=== PATIENT | male | born 1970 | race Caucasian/White ===

== ENCOUNTER 2022-04-03 09:15 | Outpatient (CLI) | payer OTHER, SELFPAY | END 2022-04-03 09:16 | disposition home or self-care (01) | LOC: AMB 04-29 22:02 | PROVIDERS: PCP Family Medicine; Visit Provider Family Medicine | DX: M54.9 Dorsalgia, unspecified (principal) | CPT/HCPCS: A0425; A0433 ==

== ENCOUNTER 2022-04-03 10:04 | Emergency (ER) | payer OTHER, SELFPAY ==
[2022-04-03] VITALS (7 sets, daily range): BP systolic 117–135; BP diastolic 73–79; PULSE 61–65; RESP 18; TEMP 36.6; O2SAT 94–98; BMI 31.6
--- NOTE | 2022-04-03 11:33 | CRLHL7_ITS ---
For Patients: As a result of the Cures Act, medical imaging exams and procedure reports are released immediately into your electronic medical record. You may view this report before your referring provider. If you have questions, please contact your health care provider. INDICATION: fall; twisted low back TECHNIQUE: 2-view lumbar spine. COMPARISON: none FINDINGS: The lumbar vertebrae are anatomically aligned. Minimal spurring L4-5. The facet joints appear intact. There is no evidence of a fracture or intrinsic bone lesion. The SI joints appear normal. The paraspinal soft tissues appear normal. IMPRESSION: No sign of acute injury. Dictated by Eliot Cervantes MD @ 04/03/2022 12:16:44 PM (Electronically Signed)
--- NOTE | 2022-04-03 11:35 | ED.BACK ---
HPI - Back Pain/Injury General Chief Complaint: Back Injury/Pain Stated Complaint: Backpain Time Seen by Provider: 04/03/22 11:24 History of Present Illness HPI Narrative: This 51-year-old male comes in by ambulance because of severe low back pain. He states that he was stepping out of a truck yesterday onto an incline that was slippery. He twisted and fell and had severe pain on his low back on both the left and right side of his midline. He was able to get up eventually and with difficulty to ambulate. He comes in by ambulance today because he was unable to get up this morning due to severe pain. He does report pain down the anterior aspect of his left upper leg. He does have a prior history of low back pain. He does not report any other injury and did not have loss of consciousness. He states that he took an oxycodone twice through the night but this did not help much. Ambulance arrived because he was not able to get up because of severe pain. An IV was established and he received fentanyl 100 mcg and Ativan 2 mg intravenously prior to arrival here. At the time of my visit with him he was repeatedly falling asleep under the influence of these medications. Related Data Home Medications Medication Instructions Recorded Confirmed albuterol sulfate 90 mcg/actuation 2 puff inhalation Q4H PRN 04/03/22 04/03/22 aerosol inhaler bupropion HCl 150 mg 24 hr tablet, 150 mg PO DAILY 04/03/22 04/03/22 extended release Previous Rx's Medication Instructions Recorded cyclobenzaprine 10 mg tablet 10 mg PO TID #15 tabs 04/03/22 hydrocodone 5 mg-acetaminophen 325 1 tab PO Q4-6H PRN pain #15 tabs 04/03/22 mg tablet ketorolac 10 mg tablet 10 mg PO Q8H 5 days #15 tabs 04/03/22 methylprednisolone 4 mg tablets in See Rx Instructions PO .COMPLEX 04/03/22 a dose pack (Medrol (Quirino)) #21 ea Allergies Allergy/AdvReac Type Severity Reaction Status Date / Time No Known Drug Allergies Allergy Verified 04/03/22 10:24 Review of Systems Status of ROS: Reports: 10 or more systems reviewed and unremarkable except as noted in History and below Narrative: Constitutional: No fevers, no weight gain or loss. Eyes: No discharge. No vision changes. HENT: No congestion, no sore throat, no ear pain. Cardiovascular: No chest pain, no palpitations. Respiratory: No shortness of breath, no wheezes, no cough. Gastrointestinal: No abdominal pain, no vomiting, no diarrhea. Genitourinary: No dysuria, no hematuria. Musculoskeletal: Low back pain as described above. Skin: No rashes, no pruritis. Neurological: No dizziness, weakness, sensory change, speech change. Endo/Heme/Allergies: No bruising or bleeding. No polydipsia. Pysch: no suicidality, no anxiety, no insomnia. All other systems reviewed and are negative. PFSH [facility] Social History Smoking Status: Current every day smoker What tobacco products do you use: cigarettes Do you use any of these nicotine containing products: Vaping Products Second hand tobacco smoke exposure: No How often do you have a drink containing alcohol: monthly or less How many standard drinks containing alcohol do you have on a typical day: 1 or 2 AUDIT-C Alcohol total score: 1 Non-prescribed substance use: denies use Exam Narrative: Exam Narrative: Constitutional: Well-developed, well-nourished, no acute distress. HEENT: Normocephalic, atraumatic. Neck: Normal range of motion. Nontender. Supple. Heart: Regular. No murmurs. Normal rate. Intact distal pulses. Lungs: Clear to auscultation. No chest discomfort. No wheezes, rhonchi, or rales. Abdomen: Normal bowel sounds. Nontender. No rebound tenderness. Genitalia: Deferred. Back: Bilateral low back pain with pain radiating down the anterior aspect of the left upper leg. Straight leg raise is positive bilaterally at about 20? elevation. Extremities: Normal range of motion. No injury. Skin: Intact. No rash. Warm. No erythema or pallor. Neurologic: No altered sensation. No weakness. Alert and oriented. Psychiatric: No suicidality. No anxiety or depression. No insomnia. Nursing notes and vitals signs are reviewed. Const: Vital Signs, click to edit/add: Vital Signs - 24 hr 04/03/22 10:17 04/03/22 10:32 04/03/22 10:33 Temperature 97.8 F Pulse Rate 64 65 Pulse Rate [Left P ulse Oximeter] 64 Respiratory Rate 18 Blood Pressure 135/77 Blood Pressure [Ri ght Upper Arm] 130/73 Pulse Oximetry 94 94 94 Oxygen Delivery Me thod Room Air 04/03/22 10:45 04/03/22 11:00 04/03/22 11:01 Temperature Pulse Rate 61 61 64 Pulse Rate [Left P ulse Oximeter] Respiratory Rate Blood Pressure 117/79 Blood Pressure [Ri ght Upper Arm] Pulse Oximetry 95 94 98 Oxygen Delivery Me thod 04/03/22 11:15 Temperature Pulse Rate 62 Pulse Rate [Left P ulse Oximeter] Respiratory Rate Blood Pressure Blood Pressure [Ri ght Upper Arm] Pulse Oximetry 95 Oxygen Delivery Me thod Course Vital Signs Vital signs: Initial Vital Signs Temperature 97.8 F 04/03/22 10:17 Temperature Source Temporal Artery Scan 04/03/22 10:17 Pulse Rate 64 04/03/22 10:17 Pulse Rhythm 04/03/22 10:17 Respiratory Rate 18 04/03/22 10:17 Blood Pressure 130/73 04/03/22 10:17 Blood Pressure Mean 92 04/03/22 10:17 Blood Pressure Position Supine 04/03/22 10:17 Pulse Oximetry 94 04/03/22 10:17 Oxygen Delivery Method 04/03/22 10:17 Vital Signs Temperature 97.8 F 04/03/22 10:17 Pulse Rate 64 04/03/22 10:17 Respiratory Rate 18 04/03/22 10:17 Blood Pressure 130/73 04/03/22 10:17 Pulse Oximetry 94 04/03/22 10:17 Oxygen Delivery Method 04/03/22 10:17 Temperature 97.8 F 04/03/22 10:17 Pulse Rate 62 04/03/22 11:15 Respiratory Rate 18 04/03/22 10:17 Blood Pressure 117/79 04/03/22 11:01 Pulse Oximetry 95 04/03/22 11:15 Oxygen Delivery Method 04/03/22 10:17 MDM - Back Pain/Injury MDM Narrative Medical decision making narrative: This patient comes in by ambulance because of severe low back pain after a fall that occurred yesterday. He is rather drowsy after receiving 100 mcg of fentanyl and 2 mg of Ativan intravenously prior to arrival here. He does not appear to be in much distress and actually is often falling asleep during conversation. His vital signs are in normal range. X-ray imaging of his low back shows no acute findings. The patient was able to get up and ambulate and is okay to return home. I advised him to follow up with [facility] here if not improving or worsening. He received prescriptions for Medrol Dosepak, Toradol, Flexeril, and Temple. Imaging Data XR Lumbar: Radiologist's impression: FINDINGS: The lumbar vertebrae are anatomically aligned. Minimal spurring L4-5. The facet joints appear intact. There is no evidence of a fracture or intrinsic bone lesion. The SI joints appear normal. The paraspinal soft tissues appear normal. IMPRESSION: No sign of acute injury. Discharge Plan Discharge Clinical Impression: Lumbar radiculopathy, Strain of lumbar region Patient Disposition: Home, Self-Care Condition: Stable Additional Instructions: Take medications as needed and indicated. Follow up with MD or return if worsening. To follow up with [facility] call [phone] for appointment. Prescriptions: New cyclobenzaprine 10 mg tablet 10 mg PO TID Qty: 15 0RF hydrocodone-acetaminophen 5-325 mg tablet 1 tab PO Q4-6H PRN (Reason: pain) Qty: 15 0RF ketorolac 10 mg tablet 10 mg PO Q8H 5 Days Qty: 15 0RF methylprednisolone [Medrol (Quirino)] 4 mg tablets,dose pack See Rx Instructions .ROUTE .COMPLEX Qty: 21 0RF Rx Instructions: orally per package directions No Action albuterol sulfate 90 mcg/actuation HFA aerosol inhaler 2 puff INHALATION Q4H PRN Label Comments: INHALE 1 TO 2 PUFFS BY MOUTH EVERY 4 HOURS NEEDED FOR WHEEZING bupropion HCl 150 mg tablet extended release 24 hr 150 mg PO DAILY Follow Up/Referrals: Jose Eduardo Soler MD [Primary Care Provider] - Stand Alone Forms: [employer] Info Instructions
[2022-04-03] MEDS: METHYLPREDNISOLONE SOD SUCC 62.5 MG/ML (125) 125 MG IVP (11:48)
--- NOTE | 2022-04-03 12:06 | ED.NURSE ---
Pt to and back from CT
== END 2022-04-03 13:35 | disposition home or self-care (01) ==
PROVIDERS: Emergency Provider Emergency Medicine Emergency Medical Services; PCP Family Medicine
DX: S39.012A Strain of muscle, fascia and tendon of lower back, initial encounter (principal); W01.0XXA Fall on same level from slipping, tripping and stumbling without subsequent striking against object, initial encounter; Y93.89 Activity, other specified; Y92.9 Unspecified place or not applicable; Y99.9 Unspecified external cause status; M54.16 Radiculopathy, lumbar region
CPT/HCPCS: 72100; 96374; 99283; 99284; J2930